=== PATIENT | female | born 1980 ===

== ENCOUNTER 2018-12-18 16:30 | Outpatient (CLI) | payer OTHER ==
[2018-12-18 21:11] LABS: CANDIDA GROUP DNA NEGATIVE (NEGATIVE); CANDIDA KRUSEI DNA NEGATIVE (NEGATIVE); TRICHOMONAS VAGINALIS DNA NEGATIVE (NEGATIVE)
== END 2018-12-18 23:59 | disposition home or self-care (01) ==
LOC: LAB.R 16:30
PROVIDERS: ATTEND Physician Assistant Medical
DX: N76.0 Acute vaginitis (principal)
CPT/HCPCS: 87661; 87801